=== PATIENT | male | born 1990 | race African-American/Black ===

== ENCOUNTER 2021-01-19 08:30 | Emergency (ER) | payer OTHER, SELFPAY ==
[2021-01-19 08:42] VITALS: BP 140/79; PULSE 94; RESP 16; TEMP 36.6; O2SAT 99
[2021-01-19 08:57] VITALS: BP 140/79; PULSE 94; RESP 16; TEMP 36.6; O2SAT 99
--- NOTE | 2021-01-19 09:23 | ED.URI ---
HPI - URI/Sore Throat General Chief Complaint: Upper Respiratory Infection Stated Complaint: sore throat/redness right side Time Seen by Provider: 01/19/21 09:00 Source: patient and RN notes reviewed Mode of arrival: ambulatory Limitations: no limitations History of Present Illness HPI Narrative: Patient presents today complaining of a sore throat since yesterday, but worsened last night. He also reports some postnasal drip. Denies congestion, rhinorrhea, cough, fever, ear pain, headache, nausea, vomiting, diarrhea. Currently rates his pain 7/10, which increases with swallowing. He has tried no medication for symptoms prior to arrival. He has had his first Covid shot approximately 10 days ago. History of ITP. He takes Zyrtec and Singulair for seasonal allergies. MD elicited complaint: sore throat Related Data Home Medications Medication Instructions Recorded Confirmed cetirizine mg 01/19/21 montelukast mg 01/19/21 Allergies Allergy/AdvReac Type Severity Reaction Status Date / Time nut - unspecified Allergy Unknown Hives / Verified 09/25/18 04:41 Red Face tomato Allergy Unknown Verified 09/24/18 22:34 Cat Dander Allergy Unknown Uncoded 09/24/18 22:34 Dog Dander Allergy Unknown Uncoded 09/24/18 22:34 Review of Systems Review of Systems: Narrative: CONSTITUTIONAL: Denies body aches, fever, chills, or sweats. EYES: Denies visual changes, redness, or discharge. ENT: Denies rhinorrhea, congestion, or otalgia. + Sore throat, postnasal drip CARDIOVASCULAR: Denies chest pain, palpitations, or edema. RESPIRATORY: Denies cough or dyspnea. GASTROINTESTINAL: Denies abdominal pain, nausea, vomiting, or diarrhea. GENITOURINARY: Denies dysuria or hematuria. SKIN: Denies rash, itching, or wounds. MUSCULOSKELETAL: Denies back pain, joint pain, or myalgia. NEUROLOGIC: Denies headache, numbness, tingling, or weakness. PSYCH: Denies depression or anxiety. [facility] Past Medical History Medical History (Updated 01/19/21 @ 09:49 by Kimberly Cosme, NUCLE[employer] CONTROL ROOM OPERATOR, ) Idiopathic thrombocytopenia purpura Seasonal allergies Family History Family History (Updated 04/28/16 @ 23:19 by DOCTOR UNKNOWN) Mother Depression Father Hypertension Family history of elevated blood lipids Family history of diabetes mellitus in first degree relative Other Diabetes mellitus Social History Social History Smoking status: Never smoker Alcohol intake: current Comments At time of signature, I have reviewed and agree with nursing past medical, surgical, social and family history unless otherwise noted. Please see nursing chart for further information. There is no relevant family history pertinent to the presenting complaint Exam Narrative: Exam Narrative: GENERAL: Well-appearing, well-nourished, and in no acute distress. HEAD: Normocephalic, atraumatic. EYES: EOMI. No redness or drainage. Conjunctivae normal. ENT: Mucous membranes pink and moist. Nares clear. No rhinorrhea. TMs normal bilaterally. Throat erythematous. Tonsils 3+ with a small amount of white exudate. Small amount of white postnasal drainage. Uvula midline. NECK: Normal AROM. Supple. Mild bilateral anterior cervical chain lymphadenopathy. CHEST: No respiratory distress. Clear to auscultation. HEART: Regular rate and rhythm. No murmur appreciated. Normal peripheral pulses. EXTREMITIES: Normal range of motion. No edema. SKIN: Warm, dry, no rash. Capillary refill normal. Normal skin turgor. NEURO: No focal deficits. Alert and oriented x3. Gait steady. PSYCH: Normal affect. No signs of depression or anxiety. Course Vital Signs Vital signs: Vital Signs Temperature 97.8 F 01/19/21 08:42 Pulse Rate 94 01/19/21 08:42 Respiratory Rate 16 01/19/21 08:42 Blood Pressure 140/79 01/19/21 08:42 Pulse Oximetry 99 01/19/21 08:42 Temperature 97.8 F 01/19/21 08:57 Pulse Rate 94 01/19/21 08:57 Respiratory Rate 16 01/19/21 08:57 B
== END 2021-01-19 09:50 | disposition home or self-care (01) ==
PROVIDERS: Emergency Provider Nurse Practitioner
DX: J02.8 Acute pharyngitis due to other specified organisms (principal); Z20.822 Contact with and (suspected) exposure to COVID-19
CPT/HCPCS: 87081; 87426; 87880; 99213; C9803; G0463